=== PATIENT | male | born 1950 | race Caucasian/White ===

== ENCOUNTER 2016-06-21 06:52 | Day surgery (SDC) | payer MEDICARE, OTHER ==
[~2016-06-21] VITALS: Ht 182.9 cm; Wt 106.6 kg
[2016-06-21] VITALS (13 sets, daily range): BP systolic 112–147; BP diastolic 64–93; PULSE 62–87; RESP 14–18; O2SAT 94–98
[~2016-06-21 06:52] MED LIST: AMLO5TAB2 PO; ASPI-973 PO; Bupivacaine Liposome 1.3% 20 mL Inj INFILTRATE SCH; CeFAZolin Inj 2 GM in IV Premix 1 EACH IV SCH; HYDR25TA4 PO; LISI-571 PO; MULT-1018 PO; OMEG-38 PO; SUPPLEMENT PO; VIT1TABL83 PO; Vancomycin Inj 1,000 MG in IV Premix 1 EACH IV SCH
[2016-06-21] MEDS ORDERED: fentaNYL-PF 50 mCg/mL 2 mL Inj ONE (06:53)
[2016-06-21] MEDS ORDERED: Propofol 10,000 mCg/mL 20 mL Inj ONE (06:53)
[2016-06-21] MEDS ORDERED: Dexamethasone 4 mg/mL Inj ONE (06:53)
[2016-06-21] MEDS: Lactated Ringer's 1,000 ML IV SCH ×2 (07:05→09:35)
[2016-06-21] MEDS ORDERED: ASCO100T11 PO (07:47)
[2016-06-21] MEDS ORDERED: OLIV250C PO (07:47)
[2016-06-21] MEDS ORDERED: LOSA100T29 PO (07:47)
--- NOTE | 2016-06-21 08:24 | PCM.HPANE ---
Patient Data Date of Service: Jun 21, 2016 Surgeon Admitting Provider: Attending Provider:Jeff Bustillos MD Primary Care Physician:Juan Luis Queen DO Other Provider:Lara Wharton Anesthesia Reason for Visit Right Knee Arthritis Ht/WT & BMI Height (Feet): 6 Height (Inches): 0 Weight (Kilograms): 106.6 Body Mass Index 31.00 Allergies Coded Allergies: nickel (Verified Allergy, Severe, RASH, 06/19/16) Past Anesthesia History Anesthesia History: Denies:: Anesthesia Reactions, Malignant Hyperthermia Diabetes History Hx Diabetes?: Yes MRSA MRSA: No Medications Blood Thinner: Aspirin Hypertension Medication: Yes (AMLODIPINE,LISINOPRIL,HCTZ) Home Meds Incl Beta Beverly: No Reported Medications Ascorbic Acid (Vitamin C)100 Mg [id number] Mg PO DAILY 06/21/16 [place] Extract 250 Mg [id number] Mg PO DAILY 06/21/16 Losartan Potassium 100 Mg Gyllkr978 Mg PO DAILY 06/21/16 Vit B Comp/C/FA/Iron/Vit E (Vitamin B Complex Tablet)1 Each Tablet1 Each PO DAILY 06/19/16 Multivitamin (Multi Vitamin Daily)1 Each Tablet1 Each PO DAILY 30 Days Ref 0 06/19/16 Hydrochlorothiazide 25 Mg [id number] Mg PO DAILY 30 Days Ref 0 06/19/16 [place]-3/Dha/Epa/Fish Oil (Fish Oil 1,000 mg Softgel)1 Each Capsule1 Each PO DAILY 06/19/16 Aspirin 81 Mg Lylgah16 Mg PO DAILY Ref 0 06/19/16 Amlodipine 5 Mg Tablet5 Mg PO DAILY Ref 0 06/19/16 Discontinued Reported Medications [Supplement] No Conflict Check1 Tab PO DAILY OMEGA 3,TUMERIC & HYALURONIC JOINT COMPLEX 06/19/16 Lisinopril 5 Mg Ovhvhk41 Mg PO DAILY #30 TABLET Ref 0 06/19/16 History History of ENT Problems?: No Denture Type: Full- Upper Hx of Heart Problems?: Yes Cardiovascular History: Positive for:: Hypertension Denies:: Heart Murmur Other Cardiac History: HAS BEEN TOLD HE HAS "THICK BLOOD" Hx of Respiratory Problem?: No Respiratory History: Denies:: Use of C-PAP Machine Hx Neurologic Problems?: Yes Neurological History: Positive for:: CVA (1999) Other History/Comments Left face numbness, dysphagia persist Hx of GI Problems?: Yes Other GI Pertinent History: S/P UMBILICAL HERNIA RPR Hx of Problems?: No Male Hx: Positive for:: Testicular Surgery (S/P VASECTOMY) Denies:: Prostate Problems Scrotal Mass Skin History: Denies:: History Skin Disorders? Pressure Ulcers Hx Musculoskeletal Problems?: Yes Musculoskeletal History: Positive for:: Degenerative Joint Osteoarthritis (RT KNEE=CURRENT PROBLEM) Hx of Psycho/Social Problems?: Yes Psycho Social History: Positive for:: Anxiety (PTSD) Hx Surgeries?: Yes (UMBILICAL HERNIA RPR,VASECTOMY) Hx Any Other Health Problems?: Yes Other History: Denies:: Cancer Endocrine Disease Hospitalization Thyroid Disease History Blood Transfusions: Denies:: Blood Transfusions Hx Diabetes: Yes Have You Smoked inLast 12 mo: No Stop/Bang S-Snoring: Do You Snore Loudly: No T-Tired: feel tired, fatigued: No O-Obsered: Observed not breath: No P-Blood Pressure: treated: Yes B- Body Mass Index > 35 kg/m2: No A- Age over 50: Yes N- Neck Large Circumference: Yes G- Gender Male: Yes STEPHANY Total Score: 4 STEPHANY Risk Assessment: High Risk, =/>3 Yes STEPHANY Category 4 OutPt Procedure: Yes Risk Assessment Category Category 1A: Patient has history of documented sleep apnea, and HAS NOT received any narcotic, sedative or anesthesia administration during this stay. Category 1B: Patient has history of documented sleep apnea, and HAS received any narcotic , sedative or anesthesia administration during this stay Category 2: Patient has SUSPECTED Obstructive Sleep Apnea, and HAS received any narcotic , sedative or anesthesia administration during this stay. Category 3: Patient has SUSPECTED Obstructive Sleep Apnea and HAS NOT received narcotic, sedative or anesthesia administration during this stay. Category 4: Outpatient in Procedural Areas with known sleep apnea or who screen positive for High Risk via the STOP/BANG questionnaire. Exam Exam Vital Signs Vital Signs Date Time Temp Pulse Resp B/P Pulse Ox O2 Delivery O2 Flow Rate FiO2 06/21/16 07:17 36.3 70 18 147/93 94 Room Air General Appearance: Alert, Oriented X3, Cooperative, No Acute Distress HEENT/AIRWAY: MP 2 Lungs: Clear to Auscultation, Normal Air Movement Heart: Exam Unremarkable, Regular Rate/Rhythm, No Murmurs/Rubs/Gallops Meds/Labs/Diagnostics Admission Meds Current Medications Lactated Ringer's 1,000 ml @ 120 mls/hr Q8H20M IV Last administered on 07:05; Start 06/21/16 at 05:00; Stop 06/21/16 at 13:19 Vancomycin/0.9 % Sod Chloride/ Premix (Vancomycin Inj/ IV Premix) 200 ml @ 133.333 mls/hr PREOP IV Last administered on 06/21/16 07:35; Start 06/21/16 at 06:00; Stop 06/21/16 at 19:00 Plan Impression Patient chart reviewed, patient interviewed and anesthestic plan with risks, benefits, and alternatives discussed, and informed consent obtained. NPO Status: 06/20/16 ASA Physical Status: ASA2 Mod Systemic Disease Anesthetic Plan: SAB Bene/Risks/Altern/Consents: Yes HP Complete Prior to Induction: Yes Deacon Abbasi MD Jun 21, 2016 08:24
[2016-06-21] MEDS ORDERED: 0.9% Sodium Chloride 200 ML ONE (08:47)
[2016-06-21] MEDS ORDERED: 0.9% Sodium Chloride 100 ML IV ONE (09:37)
[2016-06-21] MEDS ORDERED: Lactated Ringer's 1,000 ML IV SCH (09:58)
[2016-06-21] MEDS ORDERED: Lactated Ringer's 500 ML IV PRN (09:58)
[2016-06-21] MEDS ORDERED: EPHEDrine Sulfate 50 mg/mL Inj IVPUSH PRN (10:00)
[2016-06-21] MEDS ORDERED: hydrALAZINE 20 mg/mL Inj IVPUSH PRN (10:00)
[2016-06-21] MEDS ORDERED: fentaNYL-PF 50 mCg/mL 2 mL Inj IVPUSH PRN (10:00)
[2016-06-21] MEDS ORDERED: MetoCLOpramide 5 mg/mL 2 mL Inj IVPUSH PRN (10:00)
[2016-06-21] MEDS ORDERED: Atropine 0.4 mg/mL Inj IVPUSH PRN (10:00)
[2016-06-21] MEDS ORDERED: Phenylephrine 10,000 mCg/mL Inj IVPUSH PRN (10:00)
[2016-06-21] MEDS ORDERED: Labetalol 5 mg/mL 4 mL Inj IV PRN (10:00)
[2016-06-21] MEDS ORDERED: HYDROmorphone 1 mg/mL Inj IVPUSH PRN (10:00)
[2016-06-21] MEDS ORDERED: Ondansetron 2 mg/mL 2 mL Inj IVPUSH PRN (10:00)
[2016-06-21] MEDS ORDERED: Gentamicin 40 mg/mL 2 mL Inj IRRIGATION ONE (10:21)
[2016-06-21] MEDS ORDERED: Bupivacaine-MPF 0.25%/EPI 30 mL Inj INJ ONE (10:21)
[2016-06-21] MEDS ORDERED: Bupivacaine Liposome 1.3% 20 mL Inj INFILTRATE ONE (10:21)
[2016-06-21] MEDS: Tranexamic Acid 100 mg/mL 10 mL Inj IV SCH ×2 (10:23→11:01)
--- NOTE | 2016-06-21 12:07 | DRSVH ---
PROCEDURE: X-RAY RIGHT KNEE, ONE OR TWO VIEWS ([id number]) INDICATIONS: post op knee TECHNIQUE: 2 view(s) of the knee acquired. COMPARISON: None. FINDINGS: Bones: Patient is status post medial knee joint arthroplasty. Hardware components are in expected p ositions. Visualized bony structures are intact. Soft tissues: Overlying postoperative changes are noted. IMPRESSION: Right knee prosthesis in anatomic lamina. Dictated by: Troy Dasilva M.D. on 06/21/2016 at 12:05 Approved by: Troy Dasilva M.D. on 06/21/2016 at 12:06
--- NOTE | 2016-06-21 14:54 | OP ---
[address] [address] OPERATIVE REPORT PATIENT: MARCO COSTA : 1950 MR#: [id number] ADMIT: 06/21/2016 JOB ID: [id number] DATE OF SURGERY: 06/21/2016 PREOPERATIVE DIAGNOSIS(ES): Advanced medial compartment osteoarthritis, right knee. POSTOPERATIVE DIAGNOSIS(ES): Advanced medial compartment osteoarthritis, right knee. PROCEDURE: Unicompartmental knee replacement. SURGEON: Jeff Bustillos MD DEVELOPER ADVOCATE: Sherman Crooks (fundraising assistant required due to the major complexity of the operation). INDICATIONS: This gentleman has severe osteoarthritic changes unresponsive to conservative treatment. He elects to proceed with a unicompartmental knee replacement. He understands and accepts the potential for risks and complications, which include but is not limited to infection, thromboembolic, neurovascular events, as well as the potential for progressive arthritis and implant failure. He has a history of allergy to NICKEL and, therefore, we will use a titanium tibial component and an Oxinium femoral component. PROCEDURE: The patient was prepped and draped in the usual sterile fashion. An anteromedial approach was made. Frontal bossing removed from the tibia. Patellar osteophyte was removed off the medial border. Alignment apparatus was assembled and the distal femoral and proximal tibial cuts were made. The tibia was sized to a number 6 Journey Oxinium femoral chamfer block fixed in appropriate position. Rotation and drill holes and chamfer cuts were made. Subsequent to this, the tibia was sized to a #6 ZUK tibial provisional placed. Trial reductions performed. All meniscal tissue and osteophytes removed. A 10 mm polyethylene produced excellent alignment, soft tissue tracking. Pressurized lavage followed by pressurized cementation of the components. Excess cement was removed during the curing process. Final construct was assembled. Deep Hemovac drain left and wound closed over the deep Hemovac drain with #2 Quill deep followed by a 2-0 Vicryl, 3-0, and a 4-0 intracuticular stitch. Cup margins were injected with Marcaine with Exparel Nex. The patient tolerated the procedure well. There were no complications.
--- NOTE | 2016-06-21 15:52 | PCM.ANEP1 ---
Post Anesthesia Phase 1 PACU Phase 1 Assessment Date of Service: Jun 21, 2016 Vital Signs Vital Signs Date Time Temp Pulse Resp B/P Pulse Ox O2 Delivery O2 Flow Rate FiO2 06/21/16 12:37 18 98 06/21/16 12:20 16 95 06/21/16 12:19 62 16 112/90 95 Room Air 06/21/16 12:15 69 15 118/79 96 06/21/16 12:10 14 96 06/21/16 12:05 65 17 125/76 95 06/21/16 11:50 68 15 126/84 94 06/21/16 11:44 14 97 06/21/16 11:40 67 15 138/84 97 Room Air 06/21/16 11:35 87 15 116/64 95 Room Air 06/21/16 11:30 36.4 74 16 137/93 94 Room Air Anesthetic Administered: SAB Level of Alertness: Awake, talking HOLM's with Equal Strength: Yes Pain: No Nausea or Vomiting: No Oxygen Delivery: Room Air Lungs: Clear to Auscultation, Normal Air Movement Dermatome Level: L3,4 (Patella) Deacon Abbasi MD Jun 21, 2016 15:52
--- NOTE | 2016-06-21 15:52 | PCM.ANEP2 ---
Post Anesthesia Evaluation ASA/CMS Post Anesthesia VS in Patient's Normal Range?: Yes Resp Stable; Airway Patent?: Yes CV Function & Hydration Stable: Yes Mental Status Recovered?: Yes Pain control Satisfactory?: Yes N/V Control Satisfactory?: Yes Deacno Abbasi MD Jun 21, 2016 15:52
== END 2016-06-21 23:59 | disposition home or self-care (01) ==
LOC: SAS 06:52
PROVIDERS: ATTEND Orthopaedic Surgery
DX: M17.11 Unilateral primary osteoarthritis, right knee (principal); I10 Essential (primary) hypertension; I25.10 Atherosclerotic heart disease of native coronary artery without angina pectoris; Z86.73 Personal history of transient ischemic attack (TIA), and cerebral infarction without residual deficits; F43.10 Post-traumatic stress disorder, unspecified; E66.9 Obesity, unspecified; Z68.33 Body mass index [BMI] 33.0-33.9, adult; Z87.891 Personal history of nicotine dependence; Z79.82 Long term (current) use of aspirin
CPT/HCPCS: 27446; 73560; C1713; C1776; J0690; J1100; J1580; J2250; J3010; J3370; J7120

== ENCOUNTER → 2016-12-17 | Day surgery (SDC) | payer OTHER ==
[~2016-12-17] VITALS: Ht 182.9 cm; Wt 96.2 kg
[2016-12-17] VITALS (11 sets, daily range): BP systolic 153–182; BP diastolic 85–91; PULSE 51–69; RESP 7–23; O2SAT 94–100
[~2016-12-17] MED LIST changes: +Bupivacaine-MPF 0.5% W/EPI 30 mL Inj INFILTRATE ONE; +CeFAZolin 2 Gm/50 mL D5W Duplex Bag IV ONE; +Dexamethasone 4 mg/mL Inj IVPUSH PRN; +Dexamethasone 4 mg/mL Inj ONE; +EPHEDrine Sulfate 50 mg/mL Inj IVPUSH PRN; +Gentamicin 40 mg/mL 2 mL Inj IRRIGATION ONE; -HYDR25TA4 PO; +HYDROmorphone 1 mg/mL Inj IVPUSH PRN; +HYDROmorphone 1 mg/mL Inj ONE; -LISI-571 PO; +LOSA50TA37 PO; +Lactated Ringer's 1,000 ML IV ONE; +Lactated Ringer's 1,000 ML IV SCH; +Lactated Ringer's 500 ML IV PRN; +MetoCLOpramide 5 mg/mL 2 mL Inj IVPUSH PRN; -OMEG-38 PO; +OMEG1CAP25 PO; +Ondansetron 2 mg/mL 2 mL Inj IVPUSH PRN; +Phenylephrine 10,000 mCg/mL Inj IVPUSH PRN; +Propofol 10,000 mCg/mL 20 mL Inj ONE; -SUPPLEMENT PO; +TURM1CAP PO; +Tranexamic Acid Inj 1,000 MG in 0.9% Sodium Chloride 100 ML IV SCH; +UBID1CAP52 PO; -Vancomycin Inj 1,000 MG in IV Premix 1 EACH IV SCH; +[UNRECOGNIZED DRUG - REMARK] PO; +fentaNYL-PF 50 mCg/mL 2 mL Inj IVPUSH PRN; +fentaNYL-PF 50 mCg/mL 2 mL Inj ONE; +oxyCODONE-Acetamin 5-325 mg Tablet PO PRN
[2016-12-17] MEDS: Vancomycin Inj 1,500 MG in 0.9% Sodium Chloride 500 ML IV SCH (11:44)
--- NOTE | 2016-12-17 13:56 | PCM.HPANE ---
Patient Data Surgeon Admitting Provider: Attending Provider:Jeff Bustillos MD Primary Care Physician:Brenda Raza DO Other Provider:[facility] Anesthesia Reason for Visit Left Knee Arthritis Ht/WT & BMI Height (Feet): 5 Height (Inches): 11 Weight (Kilograms): 96.97 Body Mass Index 29.00 Allergies Coded Allergies: nickel (Verified Allergy, Severe, RASH, 12/10/16) Past Anesthesia History Anesthesia History: Denies:: Abnormal Airway, Anesthesia Reactions, Difficult Intubation, Fam Anesthesia Reaction, Malignant Hyperthermia Diabetes History Hx Diabetes?: No MRSA MRSA: No Medications Blood Thinner: Aspirin Hypertension Medication: Yes Home Meds Incl Beta [place]: No Reported Medications [dr zambrano bp rx] No Conflict Check Po Daily 12/17/16 Ubidecarenone/Vit E Acetate (Co Q-10 100 mg Softgel)1 Each Capsule1 Each PO 12/17/16 [place]-3 Fatty Acids/Fish Oil ([place] 3 Fish Oil Softgel)1 Each Capsule.dr1 Each PO DAILY 12/10/16 Multivitamin (Multi Vitamin Daily)1 Each Tablet1 Each PO DAILY 30 Days Ref 0 12/10/16 Losartan Potassium 50 Mg Laiqwi93 Mg PO DAILY 12/10/16 Aspirin 81 Mg Scvjkp08 Mg PO DAILY Ref 0 12/10/16 Discontinued Reported Medications Vit B Comp/C/FA/Iron/Vit E (Vitamin B Complex Tablet)1 Each Tablet1 Each PO DAILY 12/10/16 Turmeric/Turmeric Ext/Pepr Ext (Turmeric Complex 500 mg Cap)500 Mg-3 Mg Capsule1 Each PO DAILY 12/10/16 Amlodipine 5 Mg Tablet5 Mg PO DAILY Ref 0 12/10/16 Ascorbic Acid (Vitamin C)100 Mg Pyzfdx596 Mg PO DAILY 06/21/16 [place] Extract 250 Mg Kwuokyy599 Mg PO DAILY 06/21/16 Losartan Potassium 100 Mg Ukpxkz029 Mg PO DAILY 06/21/16 Vit B Comp/C/FA/Iron/Vit E (Vitamin B Complex Tablet)1 Each Tablet1 Each PO DAILY 06/19/16 Multivitamin (Multi Vitamin Daily)1 Each Tablet1 Each PO DAILY 30 Days Ref 0 06/19/16 Hydrochlorothiazide 25 Mg Kdylej24 Mg PO DAILY 30 Days Ref 0 06/19/16 [place]-3/Dha/Epa/Fish Oil (Fish Oil 1,000 mg Softgel)1 Each Capsule1 Each PO DAILY 06/19/16 Aspirin 81 Mg Scgzoo76 Mg PO DAILY Ref 0 06/19/16 Amlodipine 5 Mg Tablet5 Mg PO DAILY Ref 0 06/19/16 History History of ENT Problems?: No HEENT History: Denies:: Abnormal Airway Difficult Intubation Dysphagia Hearing Problem Sinus Problem Denture Type: Full- Upper Partial- Lower Teeth Condition: Missing Teeth Hx of Heart Problems?: Yes Cardiovascular History: Positive for:: Hypertension Denies:: AICD Abdominal Aortic Aneurism Atrial Fibrillation Chest Pain Congestive Heart Failure Edema Heart Murmur Irregular Heartbeat Pacemaker Peripheral Vascular Hx of Respiratory Problem?: No Respiratory History: Denies:: Asthma COPD Emphysema Oxygen Administration Pneumonia Tuberculosis Use of C-PAP Machine Use of Inhalers / NEBS Hx Neurologic Problems?: Yes Neurological History: Positive for:: CVA (1999- resolved- some facial paralysis watches swallowing) Denies:: Headaches Multiple Sclerosis Parkinson's Disease Seizures Hx of GI Problems?: Yes Hx of Problems?: Yes Genitourinary History: Positive for:: Kidney Stones (kidney stones - passed without surgery) Denies:: Urinary Tract Infection Male Hx: Positive for:: Testicular Surgery (S/P VASECTOMY) Denies:: Prostate Problems Scrotal Mass Skin History: Denies:: History Skin Disorders? Pressure Ulcers Hx Musculoskeletal Problems?: Yes Musculoskeletal History: Positive for:: Degenerative Joint Joint Replacement (right knee ) Musculoskeletal Trauma (left knee current admission problem) Osteoarthritis Denies:: Fibromyalgia Systemic Lupus Hx of Psycho/Social Problems?: Yes Psycho Social History: Positive for:: Anxiety (PTSD) Hx Surgeries?: Yes (umb hernia, right knee ) Hx Any Other Health Problems?: Yes Other History: Denies:: Cancer Endocrine Disease Hospitalization Thyroid Disease History Blood Transfusions: Positive for:: Accept Blood Products? Denies:: Blood Transfusions Hx Diabetes: No Hx Alcohol Use: No (not for 5-6 years)Hx Substance Use: No Smoking Status: Former Smoker Have You Smoked inLast 12 mo: No Stop/Bang S-Snoring: Do You Snore Loudly: No T-Tired: feel tired, fatigued: No O-Obsered: Observed not breath: No P-Blood Pressure: treated: No B- Body Mass Index > 35 kg/m2: No A- Age over 50: Yes N- Neck Large Circumference: No G- Gender Male: Yes STEPHANY Total Score: 2 Risk Assessment Category Category 1A: Patient has history of documented sleep apnea, and HAS NOT received any narcotic, sedative or anesthesia administration during this stay. Category 1B: Patient has history of documented sleep apnea, and HAS received any narcotic , sedative or anesthesia administration during this stay Category 2: Patient has SUSPECTED Obstructive Sleep Apnea, and HAS received any narcotic , sedative or anesthesia administration during this stay. Category 3: Patient has SUSPECTED Obstructive Sleep Apnea and HAS NOT received narcotic, sedative or anesthesia administration during this stay. Category 4: Outpatient in Procedural Areas with known sleep apnea or who screen positive for High Risk via the STOP/BANG questionnaire. Exam Exam General Appearance: Alert, Oriented X3, Cooperative, No Acute Distress HEENT/AIRWAY: MP 2 Lungs: Clear to Auscultation Heart: Exam Unremarkable Plan Impression Patient chart reviewed, patient interviewed and anesthestic plan with risks, benefits, and alternatives discussed, and informed consent obtained. ASA Physical Status: ASA2 Mod Systemic Disease Anesthetic Plan: GA Bene/Risks/Altern/Consents: Yes HP Complete Prior to Induction: Yes Jerald Lopez MD Dec 17, 2016 08:19
--- NOTE | 2016-12-17 14:42 | PCM.ANEP1 ---
Post Anesthesia PACU Phase 1 Assessment Vital Signs Vital Signs Date Time Temp Pulse Resp B/P Pulse Ox O2 Delivery O2 Flow Rate FiO2 12/17/16 11:40 36.2 54 16 170/87 100 Room Air 12/17/16 11:29 36.2 54 16 170/87 100 Room Air Anesthetic Administered: GA Level of Alertness: Sleepy, easy to arouse Pain: No Nausea or Vomiting: No CV Function & Hydration Stable: Yes Airway Device: Oxygen Delivery: Room Air Lungs: Clear to Auscultation Dermatome Level: Full Sensation PACU Phase 2 Assessment Patient Instructions Provided: N/A Jerald Lopez MD Dec 17, 2016 14:42
--- NOTE | 2016-12-17 15:18 | DRSVH ---
PROCEDURE: X-RAY LEFT KNEE, ONE OR TWO VIEWS ([id number]) INDICATIONS: POST OP TECHNIQUE: 2 view(s) of the knee acquired. COMPARISON: None. FINDINGS: Bones: Patient is status post knee joint arthroplasty. Hardware components are in expected position s. Visualized bony structures are intact. Soft tissues: Overlying postoperative changes are noted. IMPRESSION: Normal alignment after medial unicompartmental left knee hemiarthroplasty, with a surgica l drain overlying the operative bed. Dictated by: Eliceo Barrientos M.D. on 12/17/2016 at 15:17 Approved by: Eliceo Barrientos M.D. on 12/17/2016 at 15:17
--- NOTE | 2016-12-18 04:01 | OP ---
[address] [address] OPERATIVE REPORT PATIENT: MARCO COSTA : 1950 MR#: [id number] ADMIT: 12/17/2016 JOB ID: [id number] DATE OF SURGERY: 12/17/2016 SURGEON: Jeff Bustillos MD PAPER TWISTER TENDER: Akosua Krause PA-C. Tip Fixer required due to the complexity of the operation. PREOPERATIVE DIAGNOSIS(ES): Left knee medial compartment osteoarthritis. POSTOPERATIVE DIAGNOSIS(ES): Left knee medial compartment osteoarthritis. PROCEDURE: Left knee unicompartmental knee arthroplasty. FINDINGS OF SURGERY: Revealed an intact ACL. No visible degenerative changes of the lateral compartment or patellofemoral joint. INDICATIONS: This gentleman has had a successful unicompartmental knee on the opposite knee. He elects to proceed with the unicompartmental knee on his left knee. He understands and accepts the potential risks and complications. He has failed conservative management. PROCEDURE: The patient was prepped and draped in usual sterile fashion. An anteromedial approach made. Dissection carried down. Patellar osteophyte removed. The tibial alignment jig placed and tibial cut was made. The 9 mm spacer block utilized. Alignment was checked and soft tissue tension noted to be excellent. Distal femoral cut made. Femur was sized to a 5 femoral component, and drill holes and chamfer cuts were made. Tibia was sized to a G tibial component. Trial reduction was performed. Drill stabilization holes were made. The 9 mm polyethylene was utilized, produced excellent soft tissue tracking and alignment. All meniscal tissue and osteophytes had been removed. Pressurized cementation was followed by removal of excess cement during the curing process. Tourniquet let down. Deep Hemovac drain left. Deep closure with #2 Quill deep, followed by 2-0 Vicryl, 3-0, and a 4-0 intracuticular stitch. Patient tolerated procedure well. There were no complications.
== END | disposition home or self-care (01) ==
LOC: SAS 11:11
PROVIDERS: ATTEND Orthopaedic Surgery
DX: M17.12 Unilateral primary osteoarthritis, left knee (principal); I10 Essential (primary) hypertension; I25.10 Atherosclerotic heart disease of native coronary artery without angina pectoris; E78.5 Hyperlipidemia, unspecified; Z86.73 Personal history of transient ischemic attack (TIA), and cerebral infarction without residual deficits; Z87.891 Personal history of nicotine dependence; E66.9 Obesity, unspecified; Z68.29 Body mass index [BMI] 29.0-29.9, adult
CPT/HCPCS: 27446; 73560; C1713; C1776; J0690; J1100; J1170; J1580; J1885; J2704; J3010; J3370; J7040; J7120